=== PATIENT | female | born 1990 | race African-American/Black ===

== ENCOUNTER 2019-09-27 14:23 | Outpatient (CLI) | payer MEDICAID | END 2019-09-27 15:11 | disposition home or self-care (01) | LOC: LC 14:23 | PROVIDERS: ATTEND Student in an Organized Health Care Education/Training Program | DX: O13.3 Gestational [pregnancy-induced] hypertension without significant proteinuria, third trimester (principal); Z3A.39 39 weeks gestation of pregnancy | CPT/HCPCS: 59025 ==

== ENCOUNTER 2019-10-06 18:19 | Inpatient (IN) | payer MEDICAID ==
[2019-10-06] MEDS ORDERED: RINGERS SOLUTION,LACTATED 1,000 ML IV ONE (18:21)
[2019-10-06] MEDS ORDERED: RINGERS SOLUTION,LACTATED 1,000 ML IV PRN (18:21)
--- NOTE | 2019-10-06 18:21 | Non Stress Test Report ---
Non Stress Test Datetime Report Generated by CPN: 10/06/2019 18:21 DEMOGRAPHIC EGA NST: 39.5 INDICATION Indication for Study (NST) Other: BORDERLINE ELEVATED BP VITAL SIGNS Temperature - NST: 98.7 Pulse - NST: 77 RESP - NST: 18 NBPSYS NST: 123 NBPDIA NST: 72 MONITORING Monitor Explained: Monitor Explained; Test Explained; Patient Verbalized Understanding Time on Monitor: 09/27/2019 14:33 Time off Monitor: 09/27/2019 15:05 NST Duration: 32 NST INTERVENTIONS NST Interventions: PO Hydration; Reposition Patient Physician Notified NST: DR LOPEZ REVIEWED STRIP BABY A: [id number] BABY A Movement : Present Contraction Frequency : IRRITABILITY FHR Baseline : 135 Accelerations : 15X15 Decelerations : None Variability : Moderate 6-25bpm NST Review: Meets Criteria for Reactive NST NST Review and Verified By : ADELA Grajeda Results: Reactive NST REPORT Report Trigger: Send Report
[2019-10-06] MEDS ORDERED: DINOPROSTONE 10 MG VAGINAL INSERT.SR PV PRN (18:23)
[2019-10-06 19:11] LABS: ABSOLUTE EOSINOPHILS # (AUTO) 0.1 10^3/uL (0.0-0.6); ABSOLUTE LYMPHOCYTES (AUTO) 1.6 10^3/uL (0.5-4.7); ABSOLUTE MONOCYTES (AUTO) 0.7 10^3/uL (0.1-1.4); ABSOLUTE NEUT (AUTO) 5.5 10^3/uL (1.7-8.2); BASOPHILS % (AUTO) 0.2 % (0-2); EOSINOPHILS % (AUTO) 1.7 % (0-6); HEMATOCRIT 30.3 % (36.0-47.0); HEMOGLOBIN 9.9 g/dL (12.0-15.5); LYMPHOCYTES % (AUTO) 19.8 % (13-45); MEAN CORPUSCULAR HEMOGLOBIN 22.9 pg (27.0-33.4); MEAN CORPUSCULAR HGB CONC 32.7 g/dL (32.0-36.0); MEAN CORPUSCULAR VOLUME 70 fl (80-97); MONOCYTES % (AUTO) 8.6 % (3-13); PLATELET COUNT 340 10^3/uL (150-450); RED BLOOD COUNT 4.33 10^6/uL (3.72-5.28); RED CELL DISTRIBUTION WIDTH 19.5 % (11.5-14.0); SEGMENTED NEUTROPHILS % (AUTO) 69.7 % (42-78); TOTAL CELLS COUNTED % (AUTO) 100 %; WHITE BLOOD COUNT 7.9 10^3/uL (4.0-10.5)
[2019-10-06 20:11] LABS: APPEARANCE,URINE SLIGHTLY-CLOUDY; BILIRUBIN,URINE NEGATIVE (NEGATIVE); COLOR,URINE YELLOW; GLUCOSE, URINE NEGATIVE (NEGATIVE); KETONES,URINE NEGATIVE (NEGATIVE); LEUKOCYTE ESTERASE,URINE MODERATE (NEGATIVE); NITRITE,URINE NEGATIVE (NEGATIVE); PROTEIN,URINE NEGATIVE (NEGATIVE); URINE SPECIFIC GRAVITY 1.016; UROBILINOGEN,URINE NEGATIVE mg/dL (<2.0)
[2019-10-06 20:20] LABS: URINE AMPHETAMINES SCREEN NEGATIVE; URINE BARBITURATES SCREEN NEGATIVE; URINE BENZODIAZEPINES SCREEN NEGATIVE; URINE COCAINE SCREEN NEGATIVE; URINE MARIJUANA (THC) SCREEN NEGATIVE; URINE METHADONE SCREEN NEGATIVE; URINE PHENCYCLIDINE SCREEN NEGATIVE
[2019-10-06] MEDS ORDERED: LIDOCAINE 1% INJ-PF (10 MG/ML) 30 ML SDV ONE (22:30)
[2019-10-06] MEDS ORDERED: MISOPROSTOL 0.2 MG TABLET ONE (22:30)
[2019-10-06] MEDS ORDERED: OXYTOCIN/0.9 % SODIUM CHLORIDE 30 UNIT/500 ML RTUINJ ONE (22:30)
[2019-10-06] MEDS ORDERED: OXYTOCIN 10 UNIT/ML VIAL ONE (22:30)
[2019-10-06] MEDS ORDERED: DINOPROSTONE 10 MG VAGINAL INSERT.SR ONE (22:30)
[2019-10-06] MEDS ORDERED: ACETAMINOPHEN 325 MG TABLET ONE (23:28)
[2019-10-06] MEDS ORDERED: ZOLPIDEM TARTRATE 5 MG TABLET ONE (23:29)
[2019-10-06] MEDS ORDERED: ZOLPIDEM TARTRATE 5 MG TABLET PO ONE (23:59)
[2019-10-06] MEDS ORDERED: ACETAMINOPHEN 325 MG TABLET PO ONE (23:59)
--- NOTE | 2019-10-07 08:16 | Admission Physical ---
Datetime Report Generated by CPN: 10/07/2019 08:15 CURRENT ADMISSION Chief Complaint: Scheduled Induction of Labor Indication for Induction: Not Applicable Admit Impression : Term, Intrauterine ; No Active Labor; Intact Membranes Admit Plan: Admit to Unit; Initiate Labor Induction Protocol ALLERGIES Medication Allergies: No Medication Allergies: No Known Allergies (09/27/2019) Latex: No Latex Allergies Food Allergies: none Environmental Allergies: none OBSTETRICAL HISTORY EDC: 09/29/2019 00:00 : 1 Para: 0 Term: 0 : 0 SAB: 0 IAB: 0 Ectopic: 0 Livin Cesareans: 0 VBACs: 0 Multiple Births: 0 Gestational Diabetes: No Rh Sensitization: No Incompetent Cervix: No PRATIMA: No Infertility: No ART Treatment: No Uterine Anomaly: No IUGR: No Hx Previous C/S: No Macrosomia: No Hx Loss/Stillborn: No PIH: No Hx : No Placenta Previa/Abruption: No Depression/PP Depression: No PTL/PROM: No Post Hemorrhage: No Current Procedures: Ultrasound; NST Obstetrical History Comments: G1- current SEE RECORDS Alcohol: No Marijuana : No Cocaine: No Other Illicit Drugs: No Cigarettes: Never Smoker. [id number] MEDICAL HISTORY Diabetes: No Blood Transfusion: No Pulmonary Disease (Asthma, TB): No Breast Disease: No Hypertension: No Communications Analyst Surgery: No Heart Disease: No Hosp/Surgery: No Autoimmune Disorder: No Anesthetic Complications: No Kidney Disease: No Abnormal Pap Smear: No Neuro/Epilepsy: No Psychiatric Disorders: No Other Medical Diseases: No Hepatitis/Liver Disease: No Significant Family History: No Varicosities/Phlebitis: No Trauma/Violence : No Thyroid Dysfunction: No Medical History Comments: anemia, uterine fibroid INFECTIOUS HISTORY Gonorrhea: No Genital Herpes: No Chlamydia: No Tuberculosis: No Syphilis: No Hepatitis: No HIV/AIDS Exposure: No Rash or Viral Illness: No HPV: No PHYSICAL EXAM General: Normal HEENT: Normal Neurologic: Normal Thyroid: Deferred Heart: Normal Lungs: Normal Breast: Deferred Back: Normal Abdomen: Normal Genitourinary Exam: Normal Extremities: Normal DTRs: Normal Pelvic Type: Adequate Vital Signs: Reviewed VAGINAL EXAM Dilatation: 0 Effacement: 0 Station: -3 MEMBRANES Membranes: Intact FETUS A EGA: 41.1 FHR- Baseline: 145 Variability: Moderate 6-25bpm Accelerations: 15X15 Decelerations: None FHR Category: Category I Presentation: Vertex Admit Comment: 29yo at 41+0ega presents for scheduled IOL. c/b large 8-9cm fibroid. Admit to labor and deliver. Cervidil for IOL due to cvx c/th/hi. GBS negative. PLANS FOR LABOR AND DELIVERY Labor and Delivery: None Pain Management: Epidural Feeding Preference: Breast Benefit of Breast Feed Discussed: Yes Circumcision: N/A INFORMED CONSENT Informed Consent Obtained: Vaginal Delivery; Induction of Labor; Risks, Benefits and Alternatives Discussed Signature: with User ID: [email or web address]
[2019-10-07] MEDS ORDERED: OXYTOCIN 10 UNIT/ML VIAL ONE (13:10)
[2019-10-07] MEDS ORDERED: MISOPROSTOL 0.2 MG TABLET ONE (13:10)
[2019-10-07] MEDS ORDERED: LIDOCAINE 1% INJ-PF (10 MG/ML) 30 ML SDV ONE (13:10)
[2019-10-07] MEDS ORDERED: OXYTOCIN/0.9 % SODIUM CHLORIDE 0 UNIT/0 ML RTUINJ ONE (13:11)
[2019-10-07] MEDS ORDERED: OXYTOCIN/0.9 % SODIUM CHLORIDE 30 UNIT/500 ML RTUINJ IV PRN (13:12)
[2019-10-07] MEDS ORDERED: DINOPROSTONE 10 MG VAGINAL INSERT.SR ONE ×2 (20:41→21:30)
[2019-10-08] MEDS ORDERED: MISOPROSTOL 0.1 MG TABLET PV ONE (08:30)
[2019-10-08] MEDS ORDERED: MISOPROSTOL 0.1 MG TABLET PO ONE (08:30)
[2019-10-08] MEDS ORDERED: MISOPROSTOL 0.1 MG TABLET ONE (08:32)
[2019-10-08] MEDS ORDERED: NALBUPHINE HCL INJ 10 MG/1 ML AMPULE INJ ONE (10:39)
[2019-10-08] MEDS ORDERED: NALBUPHINE HCL INJ 10 MG/1 ML AMPULE ONE (10:40)
[2019-10-08] MEDS ORDERED: EPHEDRINE SULFATE INJ 50 MG/1 ML AMPULE ONE ×2 (14:43→17:27)
[2019-10-08] MEDS ORDERED: FENTANYL/BUPIVACAINE/NS/PF 300 MCG/150 ML RTUINJ EPI ONE (14:43)
[2019-10-08] MEDS ORDERED: BUPIVACAINE HCL 0.25 % INJ/PF (2.5 MG/1 ML) 30 ML VIAL ONE (14:43)
[2019-10-08] MEDS ORDERED: LIDOCAINE 1% INJ-PF (10 MG/ML) 30 ML SDV ONE (15:13)
[2019-10-08] MEDS ORDERED: OXYTOCIN/0.9 % SODIUM CHLORIDE 30 UNIT/500 ML RTUINJ IV PRN ×2 (17:01→18:40)
[2019-10-08] MEDS ORDERED: CITRIC ACID/SODIUM CITRATE ORAL SOLN 15 ML UDCUP ONE (17:13)
[2019-10-08] MEDS ORDERED: CEFAZOLIN 1 GM/D5W RTU 2 GM/100 ML RTUPB IV ONE (17:13)
[2019-10-08] MEDS ORDERED: PHENYLEPHRINE HCL INJ/PF 10 MG/1 ML SDV ONE (17:27)
[2019-10-08] MEDS ORDERED: FENTANYL CITRATE INJ/PF 100 MCG/2 ML AMPUL ONE ×2 (17:27→19:42)
[2019-10-08] MEDS ORDERED: KETOROLAC TROMETHAMINE INJ/PF 30 MG/1 ML SDV ONE (17:27)
[2019-10-08] MEDS ORDERED: OXYTOCIN 10 UNIT/ML VIAL ONE (17:27)
[2019-10-08] MEDS ORDERED: MIDAZOLAM 2 MG/2 ML INJ ONE (17:28)
[2019-10-08] MEDS ORDERED: ONDANSETRON HCL INJ/PF 4 MG/2 ML SDV ONE (17:28)
[2019-10-08] MEDS ORDERED: METHYLERGONOVINE MALEATE INJ/PF 0.2 MG/1 ML AMPULE ONE (17:28)
[2019-10-08] MEDS ORDERED: ACETAMINOPHEN 1,000 MG/100 ML RTUPB IV ONE (17:28)
[2019-10-08] MEDS ORDERED: LIDOCAINE 2% INJ-PF (20 MG/ML) 10 ML AMPUL ONE (17:29)
[2019-10-08] MEDS ORDERED: LIDOCAINE 1.5%/EPINEPHRINE INJ 5 ML AMP ONE (17:56)
[2019-10-08] MEDS ORDERED: PROMETHAZINE HCL INJ 25 MG/1 ML VIAL IV PRN ×3 (18:08→18:40)
[2019-10-08] MEDS ORDERED: FENTANYL CITRATE INJ/PF 100 MCG/2 ML AMPUL IV PRN ×3 (18:08)
[2019-10-08] MEDS ORDERED: ONDANSETRON HCL INJ/PF 4 MG/2 ML SDV IV PRN (18:08)
[2019-10-08] MEDS ORDERED: DIPHENHYDRAMINE HCL 50 MG/ML VIAL IV PRN (18:08)
[2019-10-08] MEDS ORDERED: OXYCODONE-ACETAMINOPHEN 5-325 MG TABLET PO PRN ×3 (18:08→18:40)
[2019-10-08] MEDS ORDERED: MEPERIDINE HCL/PF INJ 25 MG/1 ML DISP.SYRIN IV PRN (18:08)
[2019-10-08] MEDS ORDERED: DIPH/PERTUSS(ACELL)/TETANUS VAC/PF 0.5 ML SYR (>=10YO) IM PRN (18:40)
[2019-10-08] MEDS ORDERED: MORPHINE SULFATE 10 MG/ML INJ IV PRN (18:40)
[2019-10-08] MEDS ORDERED: ACETAMINOPHEN 325 MG TABLET PO PRN (18:40)
[2019-10-08] MEDS ORDERED: MEASLES,MUMPS&RUBELLA VACC/PF 0.5 ML VIAL SUBCUT PRN (18:40)
[2019-10-08] MEDS ORDERED: RINGERS SOLUTION,LACTATED 1,000 ML IV PRN (18:40)
[2019-10-08] MEDS ORDERED: ACETAMINOPHEN 1,000 MG/100 ML RTUPB IV PRN (18:40)
[2019-10-08] MEDS ORDERED: SIMETHICONE 80 MG TAB.CHEW PO PRN (18:40)
--- NOTE | 2019-10-08 18:47 | Operative Report ---
Operative Report DATE OF SURGERY: 10/08/19 PREOPERATIVE DIAGNOSIS: IUP at 41 and 5 days, failure to progress, nonreassuring heart tones, pedunculated uterine fibroids POSTOPERATIVE DIAGNOSIS: Same OPERATION: Primary low transverse hysterotomy section and myomectomy x2 SURGEON: REZA REY ANESTHESIA: Epidural TISSUE REMOVED OR ALTERED: 2 pedunculated uterine fibroids the largest being approximately 8 cm. The smaller being approximately 3 cm COMPLICATIONS: None ESTIMATED BLOOD LOSS: 800 cc INTRAOPERATIVE FINDINGS: Female infant cephalic presentation with Apgars of 9 and 9, multiple fibroids 2 of which were pedunculated on narrow stalks PROCEDURE: PROCEDURE IN DETAIL: The patient was taken to the operating room, prepared and draped in a normal sterile fashion in a supine position with a leftward tilt. A transverse skin incision was made with a scalpel and carried through to the underlying layer of fascia with the same scalpel. The fascia was excised in the midline and extended laterally with Huy. The fascia was then dissected from the rectus muscle sharply with Huy and the rectus muscle was divided and the peritoneal cavity was entered sharply with the same Metzenbaum. With good visualization of the bladder and the uterus the bladder blade was inserted. The hysterotomy was nicked with a scalpel and extended laterally with surgeon finger fraction. The was then delivered atraumatically. The nose and mouth were suctioned with a suction bulb, the cord was clamped and cut and handed off to awaiting pediatricians. Cord blood was collected. The placenta was removed manually. The uterus was exteriorized and cleared of clots and debris. The f ibroids were noted on the uterine fundus. The hysterotomy was closed with 0 Monocryl in a running, locked fashion. A second layer of the same suture was used to imbricate to ensure hemostasis. Attention was turned to the fibroids where the stalks were injected with lidocaine with epi and crushed with Marry clamps. A 10 blade scalpel was then used to amputate the fibroids from their stalks . Records were made hemostatic with a running stitch of Monocryl . The defects were then covered with Interceed . the uterus was returned to the abdomen and peritoneal cavity was cleared of clots and debris. The rectus muscle and peritoneum were repaired with mattress stitch of 2-0 Chromic. The fascia was closed with 0-Vicryl. The subcutaneous layer was closed with plain catgut and the skin was closed with 4-0 Vicryl. The patient tolerated the procedure well. Sponge, lap, and needle counts correct x2 and the patient was taken to recovery in stable condition.
[2019-10-08] MEDS ORDERED: MORPHINE SULFATE 10 MG/ML INJ ONE ×2 (18:52→20:19)
[2019-10-08] MEDS: MORPHINE SULFATE 10 MG/ML INJ IV PRN ×3 (18:54→20:19)
[2019-10-08] MEDS ORDERED: OXYTOCIN/0.9 % SODIUM CHLORIDE 0 UNIT/0 ML RTUINJ ONE (19:07)
--- NOTE | 2019-10-08 19:30 | Delivery Summary ---
Del Sum A-C Datetime Report Generated by CPN: 10/08/2019 19:29 DELIVERY PERSONNEL DELIVERY PERSONNEL: [id number] Delivery Doctor:: Latasha Peter MD Anesthesiologist:: Dr. Giraldo COURT MESSENGER:: Bouchra Terry CRNA Labor and Delivery Nurse:: Prabhjot Laurent RN Steeping Press Tender:: Brigitte Gamez RN Neonatal Nurse Practitioner:: OLIVE Britt Nursery Nurse:: Debbi Tovar RN Natural Resource Specialist/TICKET MARKER: Roxana Martínez CST Natural Resource Specialist/TICKET MARKER: Fátima Baiely CST MATERNAL INFORMATION Delivery Anesthesia: Epidural Medications After Delivery: Pitocin Bolus-Please Comment; Pitocin 30 Units in 500ml NS/D5W; Pitocin Drip 20 Units/1000ml NSS Meds After Delivery Comment: Pitocin 30 units in 500ml NS/D5W Delivery QBL: 1461 Maternal Complications: None LABOR SUMMARY EDC: 09/29/2019 00:00 No. Babies in Womb: 1 Attempted: No Labor Anesthesia: IV Sedation LABOR INFORMATION Reason for Induction: Post Dates Onset of Labor: 10/08/2019 12:00 Cervical Ripening Agents: Cytotec @ 0.05 PO Oxytocin: N/A Group B Beta Strep: negative Antibiotics # of Doses: 0 Steroids Given: None Reason Steroids Not Administered: Not Applicable MEMBRANES Membranes Rupture Method: Artificial Rupture of Membranes: 10/08/2019 13:07 Length of Rupture (hr): 4.73 Amniotic Fluid Color: Clear Amniotic Fluid Amount: Small Amniotic Fluid Odor: Normal STAGES OF LABOR Stage 3 hr: 0 Stage 3 min: 0 Total Time in Labor hr: 5 Total Time in Labor min: 51 VAGINAL DELIVERY Episiotomy: None Laceration #1: None Laceration Extension #1: N/A Laceration Repair: Not Applicable Sponge Count Correct: N/A Sharps Count Correct: N/A CSECTION DELIVERY Primary Indication: Failed Induction Secondary Indication: Nonreassuring Status CSection Urgency: Non-Scheduled CSection Incidence: Primary Labor: N/A Elective: N/A CSection Incision: Lower Uterine Transverse BABY A INFORMATION Infant Delivery Date/Time: 10/08/2019 17:51 Method of Delivery: Vaginal Nurse Controlled Delivery: No Born in Route : No : N/A Forceps: N/A Vacuum Extraction: N/A Shoulder Dystocia : No PRESENTATION/POSITION BABY A Presentation: Cephalic Cephalic Presentation: Vertex Breech Presentation: N/A PLACENTA INFORMATION BABY A Placenta Delivery Time : 10/08/2019 17:51 Placenta Method of Delivery: Expressed Placenta Status: Delivered SCORES BABY A Heart Rate 1 min: >100 bpm Resp Effort 1 min: Good Cry Reflex Irritability 1 min: Cough or Sneeze or Pulls Away Muscle Tone 1 min: Active Motion Color 1 min: Body [place], Extremities Blue SCORE 1 MIN: 9 Heart Rate 5 min: >100 bpm Resp Effort 5 min: Good Cry Reflex Irritability 5 min: Cough or Sneeze or Pulls Away Muscle Tone 5 min: Active Motion Color 5 min: Body [place], Extremities Blue SCORE 5 MIN: 9 INFANT INFORMATION BABY A Gestational Age at Delivery: 41.2 Gestational Status: Late Term- 41- 41.6 Weeks Outcome : Liveborn Infant Condition : Stable Sex: Female IDENTIFICATION BABY A Infant Verification Date/Time: 10/08/2019 17:52 ID Band Number: [id number] Mother's Name Verified: Yes RN Verifying : JNiebuhr,RN Additional Verifying Personnel: TMartin,RN WEIGHT/LENGTH BABY A Infant Birthweight (gm): 3325 Infant Weight (lb): 7 Weight (oz): 5 Length (in): 19.00 Infant Length (cm): 48.26 CORD INFORMATION BABY A No. Cord Vessels: 3 Nuchal Cord : Around Neck x1, Loose Cord Blood Taken: Yes-For Storage (Mom's Blood type +) Infant Suction: Mouth ASSESSMENT BABY A Infant Complications: None Skin to Skin: No Infant Care By: LBursey,RN BABY B INFORMATION : N/A
[2019-10-08] MEDS ORDERED: MISOPROSTOL 0.2 MG TABLET ONE (21:31)
[2019-10-08] MEDS: KETOROLAC TROMETHAMINE INJ/PF 30 MG/1 ML SDV IV SCH (22:17)
[2019-10-09] MEDS: IBUPROFEN 800 MG TABLET PO SCH ×5 (01:10→23:52)
[2019-10-09] MEDS: OXYCODONE-ACETAMINOPHEN 5-325 MG TABLET PO PRN ×3 (01:21→23:51)
[2019-10-09] MEDS: KETOROLAC TROMETHAMINE INJ/PF 30 MG/1 ML SDV IV SCH ×2 (05:20→15:07)
[2019-10-09 06:12] LABS: MEAN CORPUSCULAR HEMOGLOBIN 23.2 pg (27.0-33.4); MEAN CORPUSCULAR HGB CONC 32.7 g/dL (32.0-36.0); MEAN CORPUSCULAR VOLUME 71 fl (80-97); PLATELET COUNT 239 10^3/uL (150-450); RED BLOOD COUNT 3.39 10^6/uL (3.72-5.28); RED CELL DISTRIBUTION WIDTH 20.4 % (11.5-14.0); WHITE BLOOD COUNT 7.7 10^3/uL (4.0-10.5)
[2019-10-09 06:21] LABS: HEMOGLOBIN 7.9 g/dL (12.0-15.5)
[2019-10-09 07:37] LABS: HEPATITIS C VIRUS AB <0.1 s/co ratio (0.0-0.9)
[2019-10-09] MEDS: DOCUSATE SODIUM 100 MG CAPSULE PO SCH ×2 (09:58→17:50)
[2019-10-09] MEDS ORDERED: PRENATAL VITAMIN W DHA CAPSULE PO SCH (10:00)
--- NOTE | 2019-10-09 10:25 | PDOC PROGRESS REPORT ---
Subjective-OB Progress Note for:: 10/09/19 - POD #1, s/p Primary for FTP, B+. Rubella Non-Immune, Physical Exam (OB) Vital Signs: Temp Pulse Resp BP Pulse Ox 98.2 F 82 18 130/73 H 98 10/09/19 07:26 10/09/19 07:26 10/09/19 07:26 10/09/19 07:26 10/09/19 07:26 Intake & Output 10/08/19 10/09/19 10/10/19 06:59 06:59 06:59 Intake Total 1200 100 Output Total 400 75 Balance 800 25 - General General Appearance: Appears well, Alert - PIH/Pre-Eclampsia DTR's: 2 + Clonus: Negative Headache: Absent Epigastric Pain: No Visual Changes: No - Dressing Removed: Yes Incision: Dressing - Lochia Lochia Amount: Small 10-25 ml Lochia Color: Rubra/Red - Abdomen Description: Tender, Soft Hernia Present: No Fundal Description: Firm, Midline Fundal Height: u/3 - u/4 - Respiratory Respiratory Status: No respiratory distress Breath sounds: Clear - Cardiovascular Rhythm: Regular - Abdominal Distension: No distension Tenderness: Nontender Abdominal Notes: +BS - Genitourinary Genitourinary Note: voiding - Extremities Upper extremity: Normal inspection Lower extremities: Edema - Neurological Cognition: Normal Orientation: AAOx4 - Psychological Associated symptoms: Normal affect, Normal mood - Skin Skin Temperature: Warm Skin Moisture: Dry Objective-Diagnostic Laboratory: 10/09/19 05:40 10/09/19 05:40 WBC 7.7 RBC 3.39 L Hgb 7.9 L Hct 24.0 L MCV 71 L MCH 23.2 L MCHC 32.7 RDW 20.4 H Plt Count 239 Assessment and Plan(PN) - Assessment and Plan (1) Acute blood loss as cause of postoperative anemia Is this a current diagnosis for this admission?: Yes (2) Status post primary low transverse section Is this a current diagnosis for this admission?: Yes (3) Failure to progress in labor Is this a current diagnosis for this admission?: Yes (4) Post-term , 40-42 weeks of gestation Is this a current diagnosis for this admission?: Yes Plan:: Routine Post Op and PP orders, ambulation encouraged - Time Spent with Patient Time with patient: Less than 15 minutes Medications reviewed and adjusted accordingly: Yes - Disposition Anticipated Discharge: Home Within: within 48 hours
[2019-10-10] MEDS: IBUPROFEN 800 MG TABLET PO SCH (05:01)
[2019-10-10 08:36] VITALS: BP 136/84
--- NOTE | 2019-10-10 09:54 | PDOC DISCHARGE SUMMARY ---
Impression - Admit/DC Date/PCP Admission Date/Primary Care Provider: 10/06/19 18:19 DORETHA DELGADILLO MD Discharge Date: 10/10/19 - POD #2, doing well, desires to go home today. B+ , Rubella Non-immune, breastfeesding - Discharge Diagnosis (1) Acute blood loss as cause of postoperative anemia Is this a current diagnosis for this admission?: Yes (2) Status post primary low transverse section Is this a current diagnosis for this admission?: Yes (3) Failure to progress in labor Is this a current diagnosis for this admission?: Yes (4) Post-term , 40-42 weeks of gestation Is this a current diagnosis for this admission?: Yes - Additional Information Resuscitation Status: Full Code Discharge Diet: As Tolerated, Regular Discharge Activity: Activity As Tolerated, No Driving, No Lifting Over 10 Pounds, No Lifting/Push/Pulling, Pelvic Rest Referrals: DORETHA DELGADILLO MD [Primary Care Provider] - Prescriptions: Ibuprofen [Motrin 800 mg Tablet] 800 mg PO Q6 #60 tablet Oxycodone HCl/Acetaminophen [Percocet 5-325 mg Tablet] 1 tab PO Q4HP PRN #30 tablet PRN Reason: Pain Scale Of 4 Home Medications: Ferrous Sulfate 1 tab PO DAILY 09/27/19 Vits96/Iron Fum/Folic [ Tablet] 1 tab PO DAILY 09/27/19 Ibuprofen [Motrin 800 mg Tablet] 800 mg PO Q6 #60 tablet 10/10/19 Oxycodone HCl/Acetaminophen [Percocet 5-325 mg Tablet] 1 tab PO Q4HP PRN #30 tablet 10/10/19 HPI Reason(s) for Admission: Induction of Labor, Ceasarean Section-Primary Admission Note: FTP Procedures: Ultrasound Intrapartum Procedure(s): : Low Cervical, Transverse Results Laboratory Results: WBC 7.7 10^3/uL (4.0-10.5) 10/09/19 05:40 RBC 3.39 10^6/uL (3.72-5.28) L 10/09/19 05:40 Hgb 7.9 g/dL (12.0-15.5) L 10/09/19 05:40 Hct 24.0 % (36.0-47.0) L 10/09/19 05:40 MCV 71 fl (80-97) L 10/09/19 05:40 MCH 23.2 pg (27.0-33.4) L 10/09/19 05:40 MCHC 32.7 g/dL (32.0-36.0) 10/09/19 05:40 RDW 20.4 % (11.5-14.0) H 10/09/19 05:40 Plt Count 239 10^3/uL (150-450) 10/09/19 05:40 Lymph % (Auto) 19.8 % (13-45) 10/06/19 18:50 [place] % (Auto) 8.6 % (3-13) 10/06/19 18:50 Eos % (Auto) 1.7 % (0-6) 10/06/19 18:50 Baso % (Auto) 0.2 % (0-2) 10/06/19 18:50 Absolute Neuts (auto) 5.5 10^3/uL (1.7-8.2) 10/06/19 18:50 Absolute Lymphs (auto) 1.6 10^3/uL (0.5-4.7) 10/06/19 18:50 Absolute Monos (auto) 0.7 10^3/uL (0.1-1.4) 10/06/19 18:50 Absolute Eos (auto) 0.1 10^3/uL (0.0-0.6) 10/06/19 18:50 Absolute Basos (auto) 0.0 10^3/uL (0.0-0.2) 10/06/19 18:50 Seg Neutrophils % 69.7 % (42-78) 10/06/19 18:50 Urine Color YELLOW 10/06/19 19:02 Urine Appearance SLIGHTLY-CLOUDY 10/06/19 19:02 Urine pH 6.0 (5.0-9.0) 10/06/19 19:02 Ur Specific [place] 1.016 10/06/19 19:02 Urine Protein NEGATIVE mg/dL (NEGATIVE) 10/06/19 19:02 Urine Glucose (UA) NEGATIVE mg/dL (NEGATIVE) 10/06/19 19:02 Urine Ketones NEGATIVE mg/dL (NEGATIVE) 10/06/19 19:02 Urine Blood NEGATIVE (NEGATIVE) 10/06/19 19:02 Urine Nitrite NEGATIVE (NEGATIVE) 10/06/19 19:02 Urine Bilirubin NEGATIVE (NEGATIVE) 10/06/19 19:02 Urine Urobilinogen NEGATIVE mg/dL (<2.0) 10/06/19 19:02 Ur Leukocyte Esterase MODERATE (NEGATIVE) H 10/06/19 19:02 Urine WBC (Auto) 3 /HPF 10/06/19 19:02 Urine RBC (Auto) 1 /HPF 10/06/19 19:02 Urine Bacteria (Auto) 2+ /HPF 10/06/19 19:02 Squamous Epi Cells Auto 26 /HPF 10/06/19 19:02 Urine Mucus (Auto) OCC /LPF 10/06/19 19:02 Urine Ascorbic Acid NEGATIVE (NEGATIVE) 10/06/19 19:02 Urine Opiates Screen NEGATIVE 10/06/19 19:02 Urine Methadone Screen NEGATIVE 10/06/19 19:02 Ur Barbiturates Screen NEGATIVE 10/06/19 19:02 Ur Phencyclidine Scrn NEGATIVE 10/06/19 19:02 Ur Amphetamines Screen NEGATIVE 10/06/19 19:02 U Benzodiazepines Scrn NEGATIVE 10/06/19 19:02 Urine Cocaine Screen NEGATIVE 10/06/19 19:02 U Marijuana (THC) Screen NEGATIVE 10/06/19 19:02 RPR NONREACTIVE (NONREACTIVE) 10/06/19 18:50 Hepatitis C (VALENTIN) <0.1 s/co ratio (0.0-0.9) 10/07/19 16:02 Hep C Verif Com 1 Comment (.) 10/07/19 16:02 Blood Type B POSITIVE 10/06/19 18:50 Antibody Screen NEGATIVE 10/06/19 18:50 Plan Health Concerns: iron rich foods, take iron supplement daily Plan of Treatment: d/c home, needs MMR booster prior to discharge home. f/up with [facility] in one week for an incision check Time Spent: Less than 30 Minutes
[2019-10-10] MEDS: DOCUSATE SODIUM 100 MG CAPSULE PO SCH (10:37)
[2019-10-12 04:36] LABS: HEPATITIS C VIRUS AB <0.1 s/co ratio (0.0-0.9)
== END 2019-10-10 12:00 | disposition home or self-care (01) | DRG 787 ==
LOC: LR 18:19 → 2S 10-08 20:42
PROVIDERS: ADMIT Student in an Organized Health Care Education/Training Program; ATTEND Student in an Organized Health Care Education/Training Program
PROC: 10D00Z1 Extraction of Products of Conception, Low, Open Approach (ICD-10-PCS; principal; 2019-10-08)
PROC: 0UB90ZZ Excision of Uterus, Open Approach (ICD-10-PCS; 2019-10-08)
PROC: 10907ZC Drainage of Amniotic Fluid, Therapeutic from Products of Conception, Via Natural or Artificial Opening (ICD-10-PCS; 2019-10-08)
PROC: 3E0P7VZ Introduction of Hormone into Female Reproductive, Via Natural or Artificial Opening (ICD-10-PCS; 2019-10-08)
DX: O48.0 Post-term pregnancy (principal); D62 Acute posthemorrhagic anemia; Z3A.41 41 weeks gestation of pregnancy; O76 Abnormality in fetal heart rate and rhythm complicating labor and delivery; O62.0 Primary inadequate contractions; O34.13 Maternal care for benign tumor of corpus uteri, third trimester; Z37.0 Single live birth; O61.0 Failed medical induction of labor; O69.81X0 Labor and delivery complicated by cord around neck, without compression, not applicable or unspecified; O99.02 Anemia complicating childbirth
CPT/HCPCS: 36415; 80307; 81001; 85025; 85027; 86592; 86803; 86804; 86850; 86900; 86901; 88305; 90707; C1765; J0131; J0690; J1885; J2210; J2250; J2270; J2300; J2370; J2405; J2590; J3010; J3490